=== PATIENT | female | born 2000 | race African-American/Black ===

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

== ENCOUNTER 2019-03-26 04:37 | Emergency (ER) | payer OTHER, SELFPAY ==
[2019-03-26 05:26] LABS: #Basophils 0.1 thou/uL (0.0-0.2); #Eosinphils 0.6 thou/uL (0.0-0.7); #Lymphocytes 3.6 thou/uL (1.20-3.40); #Neutrophils 6.2 thou/uL (1.40-6.50); %Basophils 0.7 % (0.0-1.0); %Eosinophils 5.3 % (0.0-10.0); %Lymphocytes 31.3 % (28.0-48.0); %Neutrophils 53.7 % (31.0-61.0); Hemoglobin 9.8 g/dL (12.0-16.0); Mean Corpuscular HGB CONC 34.3 g/dL (32.0-36.0); Mean Corpuscular Hemoglobin 22.7 pg (25.0-35.0); Mean Corpuscular Volume 66.3 fL (78.0-98.0); Platelet Count 358 thou/uL (130-400); RBC Distribution Width 20.2 % (11.5-14.5); White Blood Cell (WBC) Count 11.4 thou/uL (4.8-10.8)
[2019-03-26 05:46] LABS: ALT (SGPT) 16 U/L (8-55); AST (SGOT) 15 U/L (5-30); Albumin 3.9 g/dL (3.5-5.0); Alkaline Phosphatase 62 U/L (40-150); Anion Gap 8 mmol/L (10-20); BUN (Urea Nitrogen) 7 mg/dL (8.4-21.0); Bilirubin, Total 0.2 mg/dL (0.2-1.2); Calc. Creatinine Clearance 0 mL/min (70-130); Calcium 9.1 mg/dL (7.8-10.44); Carbon Dioxide 25 mmol/L (22-29); Chloride 103 mmol/L (98-107); Estimated GFR-MDRD Greater than 90; Glucose 97 mg/dL (70-105); Lipase 14 U/L (8-78); Potassium 3.3 mmol/L (3.5-5.1); Protein, Total 7.9 g/dL (6.0-8.3); Sodium 133 mmol/L (136-145)
[2019-03-26 06:05] LABS: Bilirubin Negative (Negative); Blood, Urine Negative (Negative); Clarity Clear (Clear); Glucose, Urine (Dipstick) Normal (Negative); Leukocyte 75 Leu/uL (Negative); Nitrite Negative (Negative); Protein, Urine (Dipstick) 20 mg/dL (Neg-Trace); RBC/HPF 0-3 HPF (0-3)
[2019-03-26 06:07] LABS: Bacteria/HPF 1+ HPF (None Seen)
--- NOTE | 2019-03-26 06:32 | ULT ---
TRANSVAGINAL PELVIC ULTRASOUND: INDICATIONS: A 18-year-old female with pelvic pain and (hCG unavailable; unknown last menstrual period). TECHNIQUE: Fontenot-scale, color Doppler, and M-mode Doppler images were obtained of the pelvis. FINDINGS: The uterus measures 12.1 x 6.9 x 8.5 cm. There is an intrauterine gestational sac containing a pole and yolk sac. The yolk sac measures 6.3 mm. [place]-rump length is 3.61 cm. Mean sac diameter is 4.16 cm. Cardiac activity associated with the pole is 182 beats per minute. The average gestational age by ultrasound, based on biometrics, is 10 weeks 1 day, with an sammy mated due date of 10/21/2019. No free fluid is evident. The adnexae were not well seen. IMPRESSION: 1. Single live intrauterine gestation with size and dates as above. 2. Nonvisualization of the adnexae. POS: [facility]
== END 2019-03-26 06:26 | disposition home or self-care (01) ==
LOC: ERS 04:37
DX: O99.89 Other specified diseases and conditions complicating pregnancy, childbirth and the puerperium (principal); R10.9 Unspecified abdominal pain; O99.511 Diseases of the respiratory system complicating pregnancy, first trimester; J45.909 Unspecified asthma, uncomplicated; O99.341 Other mental disorders complicating pregnancy, first trimester; F31.9 Bipolar disorder, unspecified; O99.331 Smoking (tobacco) complicating pregnancy, first trimester; F17.210 Nicotine dependence, cigarettes, uncomplicated; Z3A.12 12 weeks gestation of pregnancy
CPT/HCPCS: 36415; 76856; 80053; 81003; 81015; 83690; 84702; 85025; 86900; 86901; 87086; 93976

== ENCOUNTER 2019-07-08 23:09 | Day surgery (SDC) | payer OTHER ==
[2019-07-08 23:44] VITALS: BMI 37.2
[2019-07-09 00:28] LABS: #Basophils 0.1 thou/uL (0.0-0.2); #Eosinphils 0.7 thou/uL (0.0-0.7); #Lymphocytes 3.5 thou/uL (1.20-3.40); #Monocytes 1.4 thou/uL (0.11-0.59); #Neutrophils 9.8 thou/uL (1.40-6.50); %Basophils 0.4 % (0.0-1.0); %Eosinophils 4.4 % (0.0-10.0); %Lymphocytes 22.9 % (28.0-48.0); %Monocytes 8.9 % (0.0-4.0); %Neutrophils 63.5 % (31.0-61.0); Hemoglobin 9.4 g/dL (12.0-16.0); Mean Corpuscular HGB CONC 35.4 g/dL (32.0-36.0); Mean Corpuscular Hemoglobin 25.7 pg (25.0-35.0); Mean Corpuscular Volume 72.8 fL (78.0-98.0); Mean Platelet Volume 9.4 fL (7.4-10.4); Platelet Count 269 thou/uL (130-400); RBC Distribution Width 17.8 % (11.5-14.5); Red Blood Cell (RBC) Count 3.65 mill/uL (4.00-5.20); White Blood Cell (WBC) Count 15.4 thou/uL (4.8-10.8)
[2019-07-09 01:02] LABS: ALT (SGPT) 12 U/L (8-55); AST (SGOT) 13 U/L (5-30); Albumin 3.4 g/dL (3.5-5.0); Alkaline Phosphatase 61 U/L (40-100); Anion Gap 12 mmol/L (10-20); BUN (Urea Nitrogen) 10 mg/dL (8.4-21.0); Bilirubin, Total Less than 0.2 mg/dL (0.2-1.2); Calc. Creatinine Clearance 174 mL/min (70-130); Calcium 8.8 mg/dL (7.8-10.44); Carbon Dioxide 23 mmol/L (22-29); Chloride 107 mmol/L (98-107); Estimated GFR-MDRD Greater than 90; Globulin 3.8 g/dL (2.4-3.5); Glucose 77 mg/dL (70-105); Potassium 3.9 mmol/L (3.5-5.1); Protein, Total 7.2 g/dL (6.0-8.3); Sodium 138 mmol/L (136-145)
[2019-07-09 01:18] LABS: Bacteria/HPF None Seen HPF (None Seen); Bilirubin Negative (Negative); Blood, Urine Negative (Negative); Clarity Clear (Clear); Glucose, Urine (Dipstick) Normal (Negative); Leukocyte Negative Leu/uL (Negative); Nitrite Negative (Negative); Protein, Urine (Dipstick) Negative (Neg-Trace); RBC/HPF 0-3 HPF (0-3); Squamous Epithelial 0-3 HPF (0-3); Urobilinogen Normal mg/dL (Less than 2); WBC/HPF 0-3 HPF (0-3)
--- NOTE | 2019-07-09 02:18 | SS ---
DATE OF ADMISSION: 07/08/2019 DATE OF DISCHARGE: 07/09/2019 REGULAR PHYSICIAN: Nicolette Hsu. EVALUATING PHYSICIAN: Yasmany Medeiros MD. CHIEF COMPLAINT: Nausea, vomiting, lower abdominal discomfort extending into upper legs and vagina. HISTORY OF PRESENT ILLNESS: Ms. Hernandez is a 18-year-old black G2, P1, with an estimated date of confinement of 10/22/2019, who presents tonight complaining of nausea and vomiting after eating a fried food as well as discomfort diffusely across her lower abdomen that extends into her legs with a pulling sensation in her vagina. She denies associated vaginal bleeding or ruptured membranes. Her care has been with Dr. Mcgovern at [facility]. PAST OBSTETRICAL HISTORY: Includes one section at term for what she describes as failure to progress. PAST MEDICAL HISTORY: None. PAST SURGICAL HISTORY: as above. ALLERGIES: ORANGE JUICE. CURRENT MEDICATIONS: vitamins. SOCIAL HISTORY: Denies tobacco, alcohol, or drug use. FAMILY HISTORY: Unremarkable. REVIEW OF SYSTEMS: Positive for nausea. Negative for fever, chills, vaginal bleeding, or ruptured membranes. PHYSICAL EXAMINATION: VITAL SIGNS: 138/80, pulse 68, and temperature 98.5. GENERAL: She is in no acute distress. ABDOMEN: Soft, nontender, and gravid with no guarding or rebound. There is no fundal tenderness. PELVIC: Her cervix is closed, long, soft, and posterior. heart rate tracing is stable. There are no decelerations. No significant uterine contractions are seen. LABORATORY DATA: White count 15.4, hemoglobin and hematocrit 9.4 and 26.6, and platelet count 269,000. Chemistry showed sodium of 138, potassium of 3.9, creatinine of 0.64, total bilirubin of less than 0.2, AST 13, ALT 12, and alkaline phosphatase 61. Her urinalysis shows a specific gravity of 1.027 with negative protein, negative ketones, negative blood, negative nitrites, negative bilirubin, and negative leukocyte esterase. ASSESSMENT: 1. Twenty-five week intrauterine . 2. Suspect reflux esophagitis. 3. Suspect round ligament pain. PLAN: The nature of the above was discussed with the patient in detail. She felt better during the time she was hydrated here in Labor and Delivery. She is told that she can use Pepcid AC over the counter and she can take 1 to 2 tablets twice a day. She voiced understanding of her discharge instructions and states that she has an appointment at [facility] in approximately the next 2 weeks. Job ID: [id number]
== END 2019-07-09 01:53 | disposition home or self-care (01) ==
LOC: L&D/OP 23:09
PROVIDERS: ATTEND Obstetrics & Gynecology
DX: O21.2 Late vomiting of pregnancy (principal); O99.89 Other specified diseases and conditions complicating pregnancy, childbirth and the puerperium; R10.30 Lower abdominal pain, unspecified; O34.219 Maternal care for unspecified type scar from previous cesarean delivery; Z3A.25 25 weeks gestation of pregnancy; Z91.018 Allergy to other foods
CPT/HCPCS: 36415; 80053; 81003; 85025; 99283

== ENCOUNTER 2019-07-15 17:32 | Emergency (ER) | payer OTHER ==
[2019-07-15] MEDS ORDERED: Albuterol Sulfate 2.5 mg/3 ml Neb ONE (18:21)
[2019-07-15] MEDS ORDERED: Albuterol Sulfate 2.5 mg/0.5 ml Neb ONE (18:21)
[2019-07-15] MEDS ORDERED: Dexamethasone 4 mg/ml Vial ONE (18:36)
[2019-07-15 19:40] LABS: #Basophils 0.1 thou/uL (0.0-0.2); #Eosinphils 0.6 thou/uL (0.0-0.7); #Lymphocytes 1.9 thou/uL (1.20-3.40); #Neutrophils 13.1 thou/uL (1.40-6.50); %Basophils 0.5 % (0.0-1.0); %Eosinophils 3.7 % (0.0-10.0); %Lymphocytes 11.4 % (28.0-48.0); %Monocytes 6.1 % (0.0-4.0); %Neutrophils 78.2 % (31.0-61.0); Mean Corpuscular HGB CONC 33.8 g/dL (32.0-36.0); Mean Corpuscular Hemoglobin 24.5 pg (25.0-35.0); Mean Corpuscular Volume 72.3 fL (78.0-98.0); Mean Platelet Volume 9.6 fL (7.4-10.4); Platelet Count 268 thou/uL (130-400); RBC Distribution Width 18.2 % (11.5-14.5); White Blood Cell (WBC) Count 16.7 thou/uL (4.8-10.8)
[2019-07-15] MEDS ORDERED: Magnesium 2 GM/50 ML BAG (IN WATER) ONE (19:47)
[2019-07-15 19:58] LABS: ALT (SGPT) 13 U/L (8-55); AST (SGOT) 16 U/L (5-30); Albumin 3.6 g/dL (3.5-5.0); Alkaline Phosphatase 68 U/L (40-100); Anion Gap 13 mmol/L (10-20); BUN (Urea Nitrogen) 7 mg/dL (8.4-21.0); Bilirubin, Total 0.2 mg/dL (0.2-1.2); Calc. Creatinine Clearance 0 mL/min (70-130); Calcium 8.5 mg/dL (7.8-10.44); Carbon Dioxide 21 mmol/L (22-29); Chloride 106 mmol/L (98-107); Estimated GFR-MDRD Greater than 90; Glucose 103 mg/dL (70-105); Protein, Total 7.6 g/dL (6.0-8.3); Sodium 137 mmol/L (136-145)
[2019-07-15 20:07] LABS: Potassium 2.6 mmol/L (3.5-5.1)
[2019-07-15] MEDS ORDERED: Potassium Chloride 20 MEQ TAB ONE (20:47)
== END 2019-07-15 21:12 | disposition home or self-care (01) ==
LOC: ERS 17:32
DX: O99.512 Diseases of the respiratory system complicating pregnancy, second trimester (principal); J45.901 Unspecified asthma with (acute) exacerbation; O99.342 Other mental disorders complicating pregnancy, second trimester; O99.332 Smoking (tobacco) complicating pregnancy, second trimester; F31.9 Bipolar disorder, unspecified; F17.210 Nicotine dependence, cigarettes, uncomplicated; Z3A.25 25 weeks gestation of pregnancy
CPT/HCPCS: 80053; 85025; 94640; 96365; J1100; J3475; J7611; J7620

== ENCOUNTER 2019-09-11 23:06 | Day surgery (SDC) | payer OTHER ==
[2019-09-11 23:27] VITALS: BMI 37.6
[2019-09-11] MEDS ORDERED: hydrALAZINE 20 MG/ML VIAL SLOW IVP PRN (23:49)
[2019-09-12 00:58] LABS: Bacteria/HPF None Seen HPF (None Seen); Bilirubin Negative (Negative); Blood, Urine Negative (Negative); Clarity Clear (Clear); Glucose, Urine (Dipstick) Normal (Negative); Leukocyte 25 Leu/uL (Negative); Nitrite Negative (Negative); Protein, Urine (Dipstick) 10 mg/dL (Neg-Trace); RBC/HPF 0-3 HPF (0-3); Squamous Epithelial 0-3 HPF (0-3); Urobilinogen Normal mg/dL (Less than 2); WBC/HPF 0-3 HPF (0-3)
[2019-09-12] MEDS ORDERED: Morphine 10 MG/ML VIAL IM SCH (01:30)
--- NOTE | 2019-09-12 04:01 | PRG ---
DATE OF SERVICE: 09/11/2019 PRIMARY OB: Dr. Daniel at [facility]. CHIEF COMPLAINT: Pelvic pain. HISTORY OF PRESENT ILLNESS: The patient is a 19-year-old G2, P1 female with an intrauterine at 34 weeks and 2 days, presenting to Labor and Delivery with a 1-day history of pelvic pain that she has mainly in her lower pelvis going into her groin and upper legs. She reports the pain as being sharp and stabbing, worse with movement and activity. She denies any vaginal bleeding or leakage of fluid. She is not able to say if her belly gets hard or if she is feeling contractions. The patient denies any fever, fall, headache, chest pain, shortness of breath, nausea, vomiting, diarrhea, constipation, hip problems, knee problems, muscle weakness, any new rashes, bleeding, leaking fluid, urinary urgency or frequency. She does report that she lives in a group home here locally. PAST MEDICAL HISTORY: Asthma, off medications; bipolar disorder. PAST SURGICAL HISTORY: Previous . SOCIAL HISTORY: The patient reports marijuana use and occasional rare drinking and tobacco use. ALLERGIES: ORANGE JUICE. MEDICATIONS: vitamins. PHYSICAL EXAMINATION: VITAL SIGNS: Blood pressure 121/76, heart rate of 87, respiratory rate of 18, respiratory rate of 18, saturating 100% on room air. GENERAL: She appears to be in some distress with this abdominal pain. She is otherwise alert and oriented. Cooperative and pleasant to interact with. HEENT: Head is normocephalic and atraumatic. LUNGS: Clear to auscultation bilaterally. HEART: Has a regular rate and rhythm. ABDOMEN: Gravid, soft. She has no fundal tenderness. She does have tenderness with deviation of the uterus to the right and left in her lower pelvis consistent with her chief complaint. EXTREMITIES: Nontender, nonedematous. GENITOURINARY: Cervical exam per nursing staff is closed, thick, and high. DIAGNOSTIC DATA: heart tracing shows the fetus with a baseline in the 130s with moderate long-term variability, positive 15 x 15 accelerations. Tocometer showing some irritability, but no consistent contraction pattern. ASSESSMENT AND PLAN: The patient is a 19-year-old female, G2, P1, with an intrauterine at 34 weeks and 2 days having musculoskeletal pains of . No evidence of labor at this time. Fetus has a category 1 tracing and reactive NST. The patient has been given reassurance and discharged home. She was escorted home to a group home from the hospital and was given an injection of 6 mg morphine IM prior to discharge for some relief. The patient has been counseled to follow up with Dr. Daniel as scheduled. [id number] neg [id number] Job ID: [id number] MTDD
== END 2019-09-12 01:56 | disposition home or self-care (01) ==
LOC: L&D/OP 23:06
PROVIDERS: ATTEND Obstetrics & Gynecology
DX: O26.893 Other specified pregnancy related conditions, third trimester (principal); R10.2 Pelvic and perineal pain; O99.343 Other mental disorders complicating pregnancy, third trimester; F31.9 Bipolar disorder, unspecified; O99.513 Diseases of the respiratory system complicating pregnancy, third trimester; J45.909 Unspecified asthma, uncomplicated; O99.333 Smoking (tobacco) complicating pregnancy, third trimester; F17.200 Nicotine dependence, unspecified, uncomplicated; Z3A.34 34 weeks gestation of pregnancy; Z91.018 Allergy to other foods
CPT/HCPCS: 59025; 81001; 87480; 87510; 87660; 96372; 99284; A4353; J2270

== ENCOUNTER 2023-07-19 16:03 | Emergency (ER) | payer OTHER ==
[~2023-07-19 16:03] MED LIST changes: -ISOVUE-370 76%-LOCM 1 ML ONE; +Iopamidol-370 76% 500 ML MDV (1 ML CHARGE) ONE
[2023-07-19 17:10] LABS: #Basophils 0.1 thou/uL (0.0-0.2); #Monocytes 2.5 thou/uL (0.11-0.59); #Neutrophils 16.3 thou/uL (1.40-6.50); %Basophils 0.2 % (0.0-1.0); %Eosinophils 0.1 % (0.0-10.0); %Lymphocytes 8.3 % (21.0-51.0); %Monocytes 12.2 % (0.0-10.0); %Neutrophils 78.4 % (42.0-75.0); Hematocrit 29.5 % (36.0-47.0); Hemoglobin 9.7 g/dL (12.0-16.0); Mean Corpuscular HGB CONC 32.9 g/dL (32.0-36.0); Mean Corpuscular Hemoglobin 20.8 pg (27.0-31.0); Mean Corpuscular Volume 63.2 fl (78.0-98.0); Mean Platelet Volume 10.5 fL (7.4-10.4); Platelet Count 413 10x3/uL (130-400); RBC Distribution Width 19.5 % (11.5-14.5); Red Blood Cell (RBC) Count 4.67 mill/uL (4.20-5.40); White Blood Cell (WBC) Count 20.8 10x3/uL (4.8-10.8)
[2023-07-19 17:16] LABS: BHCG - Serum Negative (NEGATIVE); Pregs Control Background? CLEAR/WHITE (CLR/WHITE); Pregs Control Bar Appear? YES (CONTROL BAR)
[2023-07-19 17:31] LABS: Bilirubin Negative (Negative); Blood, Urine Trace (Negative); CAUTI Indications for Culture Pelvic or flank pain; Clarity Turbid (Clear); Glucose, Urine (Dipstick) Normal (Negative); Ketone, Urine Negative (Negative); Leukocyte 250 Leu/uL (Negative); Nitrite Negative (Negative); Protein, Urine (Dipstick) 50 mg/dL (Neg-Trace); Specific Gravity, Urine 1.034 (1.002-1.036); pH, Urine 6.5 (5.0-9.0)
[2023-07-19 17:37] LABS: Bacteria/HPF 2+ HPF (None Seen); WBC/HPF 21-50 HPF (0-3)
[2023-07-19 17:38] LABS: Urine Culture Reflex Yes Yes
[2023-07-19 17:55] LABS: Anisocytosis SLIGHT = 6-15 cells HPF (0-5); CellaVision Operator ID LAB.KB; Microcytosis MODERATE=15-30 cells HPF (0-5); Platelet Adequacy Comment Platelets Increased; Polychromasia SLIGHT = 2-3 cells HPF (0-2); Target Cells MODERATE= 6-15 cells HPF (0-1)
[2023-07-19 18:13] LABS: Albumin 3.9 g/dL (3.5-5.0)
[2023-07-19 18:14] LABS: Calcium 9.1 mg/dL (7.8-10.44); Chloride 104 mmol/L (98-107); Potassium 3.4 mmol/L (3.5-5.1); Sodium 136 mmol/L (136-145)
[2023-07-19 18:15] LABS: Glucose 98 mg/dL (70-105)
[2023-07-19 18:16] LABS: Protein, Total 8.9 g/dL (6.0-8.3)
[2023-07-19 18:17] LABS: Anion Gap 12 mmol/L (10-20); Bilirubin, Total 0.5 mg/dL (0.2-1.2); Carbon Dioxide 23 mmol/L (22-29)
[2023-07-19 18:18] LABS: Alkaline Phosphatase 63 U/L (40-110)
[2023-07-19 18:19] LABS: BUN (Urea Nitrogen) 8 mg/dL (7.0-18.7); Calc. Creatinine Clearance 0 mL/min (70-130); Estimated GFR 95
[2023-07-19 18:20] LABS: AST (SGOT) 34 U/L (5-34)
[2023-07-19 18:21] LABS: ALT (SGPT) 19 U/L (8-55); Lipase 6 U/L (8-78)
[2023-07-19] MEDS ORDERED: Ketorolac Tromethamine 30 MG/ML VIAL ONE (18:32)
== END 2023-07-19 19:10 | disposition home or self-care (01) ==
LOC: ERS 16:03
DX: S16.1XXA Strain of muscle, fascia and tendon at neck level, initial encounter (principal); S20.211A Contusion of right front wall of thorax, initial encounter; S09.90XA Unspecified injury of head, initial encounter; N10 Acute pyelonephritis; J45.909 Unspecified asthma, uncomplicated; F17.210 Nicotine dependence, cigarettes, uncomplicated; W50.1XXA Accidental kick by another person, initial encounter; Z79.899 Other long term (current) drug therapy
CPT/HCPCS: 70450; 71260; 72125; 74177; 80053; 81001; 83690; 84703; 85025; 87077; 87086; 87186; 96374; J1885; Q9967

== ENCOUNTER 2024-03-01 22:15 | Emergency (ER) | payer OTHER ==
[2024-03-02] MEDS ORDERED: Lidocaine 1% w/Epinephrine 1:100K 20 ML VIAL ONE (00:32)
[2024-03-02] MEDS ORDERED: Boostrix 0.5 ML (Tdap) VIAL (>/=7 yrs of age) ONE (00:52)
[2024-03-02 01:13] LABS: Bacteria/HPF None Seen HPF (None Seen); Bilirubin Negative (Negative); Blood, Urine 2+ (Negative); CAUTI Indications for Culture Pelvic or flank pain; Clarity Turbid (Clear); Glucose, Urine (Dipstick) Normal (Negative); Ketone, Urine 10 mg/dL (Negative); Leukocyte 500 Leu/uL (Negative); Mucous/LPF Rare LPF (<2+); Nitrite Negative (Negative); Protein, Urine (Dipstick) 30 mg/dL (Neg-Trace); RBC/HPF Greater than 50 HPF (0-3); Specific Gravity, Urine 1.035 (1.002-1.036); Urobilinogen Normal mg/dL (Less than 2); WBC/HPF Greater than 50 HPF (0-3); pH, Urine 6.5 (5.0-9.0)
[2024-03-02 01:14] LABS: Pregnancy Test - Urine (BHCG) Negative (Negative); Pregu Control Background? CLEAR/WHITE (CLR/WHITE); Pregu Control Bar Appear? YES (CONTROL BAR); Specific Gravity 1.035 (1.002-1.036); Urine Culture Reflex Yes Yes
== END 2024-03-02 01:21 | disposition home or self-care (01) ==
LOC: EEVIPCON 22:15 → ERS 22:15
DX: N75.0 Cyst of Bartholin's gland (principal); F17.210 Nicotine dependence, cigarettes, uncomplicated
CPT/HCPCS: 81001; 81025; 87086; 90471; 90715